=== PATIENT | female | born 1995 | race Caucasian/White ===

== ENCOUNTER 2022-04-26 19:03 | Emergency (ER) | payer BC ==
[~2022-04-26] VITALS: Ht 162.6 cm; Wt 64.0 kg
[2022-04-26 19:13] VITALS: BP 131/85
--- NOTE | 2022-04-26 19:20 | NUR ---
PATIENT CALL FOR BED , NO RESPONSE PATIENT LEFT WITHOUT BEING SEEN BY DR. LAFLEUR. NO FURTHER CARE PROVIDED FOR PATIENT.
--- NOTE | 2022-04-26 19:30 | NUR ---
CALLED FOR THE SECOND TIME , NO RESPONSE
--- NOTE | 2022-04-26 19:40 | NUR ---
CALLED FOR THE THIRD TIME NO RESPONSE
== END 2022-04-26 19:20 | disposition left against medical advice (07) ==
LOC: MED 19:03
DX: M25.531 Pain in right wrist (principal); Z53.21 Procedure and treatment not carried out due to patient leaving prior to being seen by health care provider